=== PATIENT | female | born 1955 | race Two or more races ===

== ENCOUNTER 2021-08-03 11:34 | Outpatient (CLI) | payer OTHER ==
[~2021-08-03 11:34] MED LIST: DOLOGESIC CAPLE1 TAB PO; TAMIFLU45 MG PO
== END 2021-08-03 11:48 | disposition home or self-care (01) ==
LOC: MRI 11:34
PROVIDERS: ATTEND Orthopaedic Surgery
DX: S85.2 Injury of peroneal artery (principal); M25.561 Pain in right knee; M25.562 Pain in left knee
CPT/HCPCS: 73722